=== PATIENT | male | born 1970 | race Caucasian/White ===

== ENCOUNTER 2019-01-20 14:49 | Emergency (ER) | payer OTHER, SELFPAY ==
[2019-01-20 15:10] VITALS: BP 126/86; PULSE 70; RESP 16; TEMP 37.1; O2SAT 98
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
[2019-01-20] MEDS: Omnipaque 350 MG/ML 100 ML BTL IJ (16:19)
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
--- NOTE | 2019-01-20 16:53 | NUR.NOTE ---
PT RESTING IN BED NO DSITRESS NOTED NONE STATED RESP EVEN UNLABORED PENDING CT RESULTS Nursing Note:
[2019-01-20 17:01] LABS: Abs Immature Grans 0.03 k/cumm (0.0-0.09); Absolute Eosinophil Count 0.03 k/cumm (0.0-0.7); Absolute Neutrophil Count 12.63 k/cumm (1.2-6.7); Basophils % 0.1; Eosinophils % 0.2; HCT 41.5 % (40.0-50.0); HGB 14.2 g/dL (13.5-17.5); Immature Grans % 0.2; Mean Corp. HGB Concentration 34.2 g/dL (32.0-36.0); Mean Corpuscular Hemoglobin 28.9 pg (27.0-33.0); Mean Corpuscular Volume 84.3 fL (80-95); Mean Platelet Volume 10.2 fL (8.0-11.0); Monocytes % 4.3; Neutrophils % 88.2; Platelet Count 243 x1000/uL (130-400); RBC 4.92 m/cumm (4.50-6.00); RBC Distribution Width 13.2 % (11.8-14.1); White Blood Cell Count 14.32 k/cumm (4.4-10.8)
[2019-01-20 17:07] LABS: ALT 41 U/L (12-78); AST 31 U/L (15-37); Alkaline Phosphatase 74 U/L (46-116); Anion Gap 9.2 mmol/L (3-11); BUN 16 mg/dL (7-18); Bilirubin, Total 0.4 mg/dL (0.2-1.0); CO2 25.8 mmol/L (21.0-32.0); CREATININE 1.11 mg/dL (0.70-1.30); Chloride 101 mmol/L (98-107); Glucose 102 mg/dL (70-100); Potassium 3.8 mmol/L (3.5-5.1); Sodium 136 mmol/L (136-145); Total Protein 7.3 g/dL (6.4-8.2)
[2019-01-20 17:10] LABS: Absolute Basophil Count 0.01 k/cumm (0.0-0.2); Absolute Monocyte Count 0.62 k/cumm (0.11-0.7)
[2019-01-20] MEDS: Acetaminophen 325 MG TAB 650 MG PO (17:50)
[2019-01-20] MEDS: Ibuprofen 600 MG TAB PO (17:50)
[2019-01-20 18:18] VITALS: BP 122/81; PULSE 79; RESP 14; TEMP 36.5; O2SAT 97
--- NOTE | 2019-01-20 18:22 | NUR.NOTE ---
pt dc home dc reviewed with pt able to verblize undestanding ambulatory steady on dc sling in place to left arm Nursing Note:
== END 2019-01-20 18:19 | disposition home or self-care (01) ==
PROVIDERS: Emergency Provider Student in an Organized Health Care Education/Training Program
DX: S32.028A Other fracture of second lumbar vertebra, initial encounter for closed fracture (principal); S42.022A Displaced fracture of shaft of left clavicle, initial encounter for closed fracture; V18.0XXA Pedal cycle driver injured in noncollision transport accident in nontraffic accident, initial encounter
CPT/HCPCS: 36415; 80053; 86900; 86901; 99285; 71046; 73000; 74177; 85025; 99284; J3490; L3650